=== PATIENT | male | born 1940 | race Caucasian/White ===

== ENCOUNTER → 2016-05-24 | Outpatient (CLI) | payer OTHER ==
[~2016-05-24] MED LIST: ASPEC81 PO; ATOR-22 PO; B-CO1CAP5 PO; FINA5TAB PO; KETO10TA PO; MULT-506 PO; OXYC-57 PO; PRAV20TA PO; TRAM-10 PO
[2016-05-24 11:19] LABS: BLOOD UREA NITROGEN 22 mg/dl (7-18)
== END | disposition home or self-care (01) ==
LOC: C.LABBC 09:07
PROVIDERS: ATTEND Orthopaedic Surgery Sports Medicine
DX: Z01.818 Encounter for other preprocedural examination (principal)

== ENCOUNTER → 2016-08-18 | Outpatient (CLI) | payer OTHER ==
[2016-08-18 16:49] LABS: BASO % 0.5 %; BASO ABS # 0.05 K/uL (0-0.2); COMPLETE YES; EOS % 1.2 %; HEMATOCRIT 42.9 % (42-52); IG% 0.3 %; LYMPH % 36.6 %; LYMPH ABS # 3.54 K/uL (1.2-3.4); MEAN CELL VOLUME 92.7 fL (80-100); MEAN CORPUSCULAR HEMOGLOBIN 31.3 pg (25-34); MEAN CORPUSCULAR HGB CONC 33.8 g/dl (32-36); MEAN PLATELET VOLUME 9.9 fL (7.4-10.4); MONO % 7.9 %; NEUT % 53.5 %; PLATELET COUNT 254 K/uL (130-400); RED BLOOD COUNT 4.63 M/uL (4.7-6.1); WHITE BLOOD COUNT 9.66 K/uL (4.8-10.8)
[2016-08-18 17:00] LABS: POTASSIUM 4.2 mmol/L (3.5-5.1)
== END | disposition home or self-care (01) ==
LOC: C.LABBC 14:58
PROVIDERS: ATTEND Orthopaedic Surgery Sports Medicine
DX: Z01.812 Encounter for preprocedural laboratory examination (principal)

== ENCOUNTER → 2016-09-01 | Day surgery (SDC) | payer OTHER ==
[2016-08-24 13:20] VITALS: Ht 170.2 cm; Wt 79.5 kg
[~2016-09-01] VITALS: Ht 170.2 cm; Wt 79.5 kg
[~2016-09-01] MED LIST changes: +ATROPINE SULFATE 0.1 MG/ML 5ML SYR IV PRN; +BUPIVACAINE/EPINEPHRINE 0.5% MPF 1:200,000 10 ML VIAL ONE; +CEFAZOLIN 2000 MG/60 ML D5W IV SCH; +CEFAZOLIN IV 1,000 MG in DEXTROSE 5% 50ML 50 ML IV SCH; +CEFAZOLIN SOD 1 GM VIAL ONE; +CEFAZOLIN SOD 1000MG/55 ML D5W IV ONE; +DEXAMETHASONE SOD INJ 4 MG/ML VIAL ONE; +EpHEDrine SULFATE 50MG/5ML SYR ONE; +EpHEDrine SULFATE INJ 50 MG/ML AMP IV PRN; +EpINEphrine INJ 1MG/ML AMP 1 MG/ML AMP ONE; +FENTANYL CITRATE INJ 50 MCG/1 ML 2 ML VIAL ONE; +GLYCOPYRROLATE INJ 0.2 MG/ML VIAL ONE; +HYDROmorphone INJ 1 MG/ML SYR IV PRN; +LACTATED RINGER'S 1000ML 1,000 ML IV SCH; +LIDOCAINE HCL 2% 2 ML VIAL (20MG/ML) ONE; +MIDAZOLAM HCL 1 MG/ML 2ML VIAL ONE; +NEOSTIGMINE METHYLSULFATE 5 MG/5 ML SYR ONE; +ONDANSETRON INJ 2 MG/ML 2 ML VIAL IV PRN; +ONDANSETRON INJ 2 MG/ML 2 ML VIAL ONE; +OXYCODONE/ACETAMINOPHEN 5-325 TAB PO PRN; -PRAV20TA PO; +PROPOFOL IV EMULSION 10 MG/ML 20 ML VIAL IV ONE; +ROCURONIUM BROMIDE 10 MG/ML 5 ML VIAL ONE; +ROPIVACAINE 0.5% 5 MG/ML 30 ML VIAL ONE; +SODIUM CHLORIDE 0.9% 1000ML 1,000 ML IV SCH; +SUCCINYLCHOLINE CHLORIDE 20 MG/ML 10 ML VIAL IV ONE; -TRAM-10 PO
--- NOTE | 2016-09-01 06:54 | History & Physical Bridge - [place] ---
H&P Re-Evaluation Bridge Note: I have examined the patient, reviewed the History & Physical and in the interval since the performance of the History & Physical I have noted the following changes of clinical significance: No changes noted
--- NOTE | 2016-09-01 10:51 | Discharge Instructions-SurgCtr ---
Discharge Instructions Date of Service Sep 01, 2016. Visit Reason for Visit: Left Rotator Cuff Tear Discharge Discharge Diagnosis / Problem: left rotator cuff tear Discharge Goals Goal(s): Decrease discomfort, Improve function, Therapeutic intervention Activity Recommendations Activity Limitations: per Instructions/Follow-up section limited use of left arm Anesthesia . Post Anesthesia Instructions: If you have had General Anesthesia or IV Sedation: * Do not drive today. * Resume driving when surgeon permits. * Do not make important decisions or sign legal documents today. * Call surgeon for: 1. Temperature elevations greater than 101 degrees F. 2. Uncontrollable pain. 3. Excessive bleeding. 4. Persistent nausea and vomiting. 5. Medication intolerance (nausea, vomiting or rash). * For nausea and vomiting use only clear liquids such as: tea, soda, bouillon until nausea subsides, then gradually increase diet as tolerated. * If you have any concerns or questions, call your surgeon's office. If physician is unavailable and it is an emergency, call 911 or go to the nearest emergency room. . Instructions / Follow-Up Instructions / Follow-Up MEDICATIONS: * Resume previous medications unless instructed otherwise by your surgeon. * Always take pain medication on a full stomach or with food to avoid upset stomach. * Do not drink alcohol or drive while taking narcotics. * Ibuprofen or Tylenol may be taken if narcotic not needed. No ibuprofen while taking toradol SPECIAL CARE INSTRUCTIONS: __ None _x_ Keep extremity iced x 48 hours; apply ice 20-30 minutes 8-10 times/day. May remove at night. __ Sling __24 hrs/day __ Remove at night _x_ Shoulder Immobilizer _x_ 24 hrs/day __ Remove at night _x_ Dressing __ Maintain until seen in office, may shower with plastic over site _x_ Remove dressings in 24-48 hours and then may shower _x_ Cover incisions with band-aids after showering _x_ Do not remove steri-strips Call physician if chills or temperature rises above 102 degrees or pain unrelieved by prescribed pain medications at . . follow up in 2 weeks Diet Recommendations Home Diet: resume previous diet Procedures Procedures Performed: Left Shoulder Arthroscopy, Open Rotator Cuff Repair, Labral Debridement, Excision Distal Clavicle, Biceps Tenotomy Pending Studies Studies pending at discharge: no Medical Emergencies . Who to Call and When: Medical Emergencies: If at any time you feel your situation is an emergency, please call 911 immediately. . Non-Emergent Contact Non-Emergency issues call your: Surgeon . . "Provider Documentation" section prepared by Naveen Rogers. .
--- NOTE | 2016-09-01 11:32 | Anesthesia Progress Nt - [facility] ---
Anesthesia Post Op Note Date & Time Sep 01, 2016 at 11:32 Vital Signs Pain Intensity: 0 Vital Signs Past 12 Hours Date Time Temp Pulse Resp B/P (MAP) Pulse Ox O2 Delivery O2 Flow Rate FiO2 09/01/16 11:26 36.4 154/75 09/01/16 11:23 83 15 92 09/01/16 11:23 83 15 09/01/16 11:22 153/61 09/01/16 11:18 78 23 98 09/01/16 11:18 80 23 09/01/16 11:17 127/78 09/01/16 11:13 80 17 09/01/16 11:13 85 17 97 09/01/16 11:11 128/56 09/01/16 11:08 86 21 09/01/16 11:08 86 21 98 09/01/16 11:06 120/99 09/01/16 11:03 79 19 98 09/01/16 11:03 78 19 09/01/16 11:01 132/65 09/01/16 10:58 75 18 09/01/16 10:58 75 18 97 09/01/16 10:56 130/68 09/01/16 10:53 74 19 09/01/16 10:53 74 19 95 09/01/16 10:51 126/68 09/01/16 10:48 79 19 09/01/16 10:48 76 19 96 09/01/16 10:47 145/83 09/01/16 10:44 37.2 80 16 97 Diffusion Mask 09/01/16 08:58 0 09/01/16 08:57 0 09/01/16 08:52 56 09/01/16 08:52 56 39 98 09/01/16 08:51 127/65 09/01/16 08:47 54 09/01/16 08:47 55 22 99 09/01/16 08:46 128/60 09/01/16 08:42 55 09/01/16 08:42 56 36 134/56 99 09/01/16 08:37 54 29 99 09/01/16 08:37 54 09/01/16 08:36 138/71 09/01/16 08:32 57 27 99 09/01/16 08:32 57 09/01/16 08:31 132/63 09/01/16 08:27 60 37 99 09/01/16 08:27 60 09/01/16 08:22 57 09/01/16 08:22 57 99 09/01/16 08:21 115/93 09/01/16 08:17 57 14 99 09/01/16 08:17 56 09/01/16 08:16 126/69 09/01/16 08:12 61 09/01/16 08:12 61 25 98 09/01/16 08:11 126/69 09/01/16 08:07 58 09/01/16 08:07 59 22 99 09/01/16 08:06 119/80 09/01/16 08:02 53 09/01/16 08:02 53 17 141/65 99 09/01/16 07:57 53 22 99 09/01/16 07:57 53 09/01/16 07:56 119/56 09/01/16 07:53 117/64 09/01/16 07:52 58 10 99 09/01/16 07:52 56 09/01/16 07:51 126/80 09/01/16 07:47 52 09/01/16 07:47 52 4 96 09/01/16 07:46 135/68 09/01/16 07:42 141/71 09/01/16 06:41 36.8 54 18 154/77 (102) 96 Room Air Notes Mental Status: alert / awake / arousable, participated in evaluation Pt Amnestic to Procedure: Yes Nausea / Vomiting: adequately controlled Pain: adequately controlled Airway Patency, RR, SpO2: stable & adequate BP & HR: stable & adequate Hydration State: stable & adequate Anesthetic Complications: no major complications apparent
[2016-09-01 12:00] VITALS: BP 138/70; PULSE 78; TEMP 36.8; O2SAT 95
--- NOTE | 2016-09-08 13:30 | OPERATIVE REPORT ---
PREOPERATIVE DIAGNOSIS: 1. Left rotator cuff tear. 2. Left shoulder impingement. 3. Left shoulder AC joint arthritis. POSTOPERATIVE DIAGNOSIS:1. Left shoulder rotator cuff tear. 2. Left shoulder impingement. 3. Left shoulder AC joint arthritis. 4. Left shoulder biceps tendonitis with 50% tear of the biceps tendon. 5. Left shoulder degenerative labral tearing. PROCEDURE PERFORMED: 1. Left shoulder exam under anesthesia. 2. Left shoulder diagnostic arthroscopy. 3. Left shoulder arthroscopic labral debridement. 4. Left shoulder arthroscopic biceps tenotomy. 5. Left shoulder open rotator cuff repair with subacromial decompression. 6. Left shoulder open distal clavicle excision. SURGEON: Morgan Alarcon M.D. STEAM BOX HAND: Moises Rogers PA-C. COMPLICATIONS: None. ESTIMATED BLOOD LOSS: 20 cc. ANESTHESIA: General with interscalene block. OPERATIVE INDICATIONS: The patient is a 75-year-old very active gentleman an avid golfer who has had about a year and a half history of a left shoulder pain and discomfort. He has been through extensive conservative treatment without adequate relief. MRI revealed a full thickness cuff tear of the bursal side primarily. The patient failed conservative treatment and elected to proceed with operative intervention. OPERATIVE FINDINGS: Examination of the left shoulder under anesthesia revealed no obvious atrophy. His passive motion was about 170 degrees of forward elevation, rotation and abduction was about 70 degrees external and 70 internal. There was no clinical instability. ARTHROSCOPIC FINDINGS: The arthroscopic findings revealed extensive degenerative tearing of the labrum. He did have about a 50% biceps tendon tear near the biceps groove. This was distal to the insertion to the glenoid. He did have a wear and thinning of the rotator cuff on the undersurface. On the superior surface he had about a 90% bursal-sided cuff tear which is about a 1.5 to 2.0 cm in length. His glenoid was pretty well preserved from the articular cartilage standpoint. He did have some mild degenerative changes of the humeral head. OPERATIVE PROCEDURE: The patient was taken to the operating room, identified and placed on the operating room table in supine position. All contact areas were appropriately padded. IV antibiotics were provided by anesthesia team. An interscalene block had been provided in the holding area. A general anesthetic was implemented. The patient was then placed in the beach chair position using the [facility] shoulder positioner. The left shoulder was examined under anesthesia with the findings are described above. The left shoulder and arm were then prepped and draped in usual sterile fashion. The left arm and shoulder were then prepped and draped in the usual sterile fashion. Routine left shoulder arthroscopy was then performed through the tip of the posterior portal. An anterior portal was established under direct visualization. I did use the shaver to debride the degenerative portions of the labrum. I also examined the biceps. I did release the biceps at its insertion and allowed it to retract. I did not think it was worth doing a tenodesis in this elderly gentleman. Once this was complete the arthroscopic instruments were then removed from the joint. Posterior portal was closed. Attention was then drawn to the open procedure. A longitudal incision was made over the lateral aspect of the acromion and extending towards the anterior portal and incorporating the anterior portal. Sharp dissection was carried through the subcutaneous tissues down to the level of the deltoid fascia and the acromion. The subcutaneous tissues were mobilized circumferentially. A lateral split in the deltoid was then performed about 0.5 cm posterior to the anterior aspect of the acromion and extending over the AC joint of the distal clavicle and then laterally over the deltoid. The deltoid was then subperiosteally dissected off the anterior aspect of the acromion. The AC joint was exposed and then the distal three-quarters of the clavicle were then excised in an oblique fashion. An acromioplasty was then also performed. Attention was then drawn to the rotator cuff. The bursa was excised. Once the bursal tissue was excised you could see the bursal side of the rotator cuff tear. It was about a 90% tear with a few remaining fibers remaining. I elected to resect these fibers in order to perform a complete full thickness repair. The tuberosity was debrided of all soft tissue. I placed two #2 Ticron sutures in a modified Ambrosio Damian stitch over the lateral aspect of the supraspinatus. I then placed two Biomet juggernaut anchors just lateral to the articular surface and fed these through the rotator cuff/supraspinatus just medial to the previously placed sutures. I then placed the lateral rotator cuff sutures through bone tunnels created with a free needle. I then tied these over the lateral aspect of the humerus. The suture anchors were then tied. This provided excellent repair of the rotator cuff. Attention was then drawn toward closing. The wound was irrigated with copious amounts of normal saline. I did inject locally with 30 cc of 0.5% Marcaine with epinephrine. The deltoid was then repaired back to the acromion through drill holes with #2 Ticron suture. The AC joint fascia was repaired with the #2 sutures from the suture anchors. The lateral split in the deltoid was repaired with 0 Vicryl suture in a brwjds-dn-lqugn fashion. The subcutaneous tissue was then closed with 2 Dexon suture in a buried interrupted fashion. The skin was then closed with 3-0 Prolene suture in a subcuticular fashion. A sterile dressing composed of Steri-Strips, Xeroform, 4x4's, and a Tegaderm dressing followed by an abduction immobilizer were applied. The patient was then brought out of general anesthesia and transferred to the recovery room in stable condition. The patient tolerated the procedure well. No complications. All needle and sponge counts were correct at the end of the operation.
== END | disposition home or self-care (01) ==
LOC: X.SURG 06:20
PROVIDERS: ATTEND Orthopaedic Surgery Sports Medicine
DX: M75.102 Unspecified rotator cuff tear or rupture of left shoulder, not specified as traumatic (principal); M19.012 Primary osteoarthritis, left shoulder; M75.22 Bicipital tendinitis, left shoulder; M25.512 Pain in left shoulder; E78.5 Hyperlipidemia, unspecified; G47.33 Obstructive sleep apnea (adult) (pediatric); M19.90 Unspecified osteoarthritis, unspecified site; N40.0 Benign prostatic hyperplasia without lower urinary tract symptoms; F17.200 Nicotine dependence, unspecified, uncomplicated

== ENCOUNTER 2017-04-10 11:01 | Emergency (ER) | payer OTHER ==
[~2017-04-10] VITALS: Ht 170.2 cm; Wt 81.5 kg
[~2017-04-10 11:01] MED LIST changes: -ATROPINE SULFATE 0.1 MG/ML 5ML SYR IV PRN; -BUPIVACAINE/EPINEPHRINE 0.5% MPF 1:200,000 10 ML VIAL ONE; -CEFAZOLIN 2000 MG/60 ML D5W IV SCH; -CEFAZOLIN IV 1,000 MG in DEXTROSE 5% 50ML 50 ML IV SCH; -CEFAZOLIN SOD 1 GM VIAL ONE; -CEFAZOLIN SOD 1000MG/55 ML D5W IV ONE; -DEXAMETHASONE SOD INJ 4 MG/ML VIAL ONE; -EpHEDrine SULFATE 50MG/5ML SYR ONE; -EpHEDrine SULFATE INJ 50 MG/ML AMP IV PRN; -EpINEphrine INJ 1MG/ML AMP 1 MG/ML AMP ONE; -FENTANYL CITRATE INJ 50 MCG/1 ML 2 ML VIAL ONE; -GLYCOPYRROLATE INJ 0.2 MG/ML VIAL ONE; -HYDROmorphone INJ 1 MG/ML SYR IV PRN; -KETO10TA PO; -LACTATED RINGER'S 1000ML 1,000 ML IV SCH; -LIDOCAINE HCL 2% 2 ML VIAL (20MG/ML) ONE; -MIDAZOLAM HCL 1 MG/ML 2ML VIAL ONE; -NEOSTIGMINE METHYLSULFATE 5 MG/5 ML SYR ONE; -ONDANSETRON INJ 2 MG/ML 2 ML VIAL IV PRN; -ONDANSETRON INJ 2 MG/ML 2 ML VIAL ONE; -OXYC-57 PO; -OXYCODONE/ACETAMINOPHEN 5-325 TAB PO PRN; -PROPOFOL IV EMULSION 10 MG/ML 20 ML VIAL IV ONE; -ROCURONIUM BROMIDE 10 MG/ML 5 ML VIAL ONE; -ROPIVACAINE 0.5% 5 MG/ML 30 ML VIAL ONE; -SODIUM CHLORIDE 0.9% 1000ML 1,000 ML IV SCH; -SUCCINYLCHOLINE CHLORIDE 20 MG/ML 10 ML VIAL IV ONE
[2017-04-10 11:06] VITALS: TEMP 36.5; Ht 170.2 cm; Wt 81.5 kg
--- NOTE | 2017-04-10 11:39 | EMERGENCY ROOM VISIT NOTE ---
History First contact with patient: 11:28 Chief Complaint: SWELLING TO EXTREMITY Stated Complaint: RIGHT ELBOW SWOLLEN History of Present Illness The patient is a 76 year old male who presents to the Emergency Room with complaints of left elbow swelling. The patient reports that he first noticed swelling in the left elbow yesterday evening. He was at a wrestling match at that time. He denies any recent injuries to the elbow. He denies any pain, redness or warmth. The patient does have a history of left rotator cuff surgery in August of last year. He denies any history of similar symptoms. He denies any fevers. Review of Systems A complete 10 point review of systems was reviewed with the patient with pertinent positives and negatives as per history of present illness. All else were negative. Past Medical/Surgical History Medical Problems: (1) Kidney stone Surgical Problems: (1) History of back surgery (2) History of carpal tunnel surgery (3) History of neck surgery (4) S/P rotator cuff surgery Family History Heart disease Social History Smoking Status: Current Every Day Smoker Alcohol Use: none Marital Status: Housing Status: lives with significant other Occupation Status: retired Current/Historical Medications Scheduled Aspirin (Aspirin Ec), 81 MG PO DAILY Atorvastatin (Lipitor), 20 MG PO QPM B-Complex W/Biotin & Folic Aci (Super B-Complex), 1 CAP PO DAILY Finasteride (Proscar), 5 MG PO QPM Mirabegron (Myrbetriq Er), 25 MG PO DAILYBB Multivitamin (Multivitamin), 1 TAB PO DAILY Scheduled PRN Chlorpheniramine-Phenylephrine (Samreen-Pfeifer Plus Cold), 1 DOSE PO UD PRN for COLD SYMPTOMS Physical Exam Vital Signs Date Time Temp Pulse Resp B/P (MAP) Pulse Ox O2 Delivery O2 Flow Rate FiO2 04/10/17 12:52 72 18 152/79 97 04/10/17 11:06 36.5 69 20 157/89 96 Room Air Physical Exam VITALS: Vitals are noted on the nurse's note and reviewed by myself. Vital signs stable. GENERAL: This is a 76-year-old male, in no acute distress, nondiaphoretic, well- developed well-nourished. SKIN: No rashes, erythema or warmth. MUSCULOSKELETAL: There is fluctuant over the olecranon process of the left elbow. There is full range of motion of the elbow. There is no tenderness on exam. NEURO: Patient was alert and oriented to person place and time. Medical Decision & Procedures ER Provider Diagnostic Interpretation: L ELBOW MIN 3 VIEWS ROUTINE CLINICAL HISTORY: left elbow swelling pain. Edema. COMPARISON: None. DISCUSSION: No evidence for fracture or dislocation. Evidence for calcific medial and lateral epicondylitis. No significant joint effusion. Posterior soft tissue edema. IMPRESSION: Posterior soft tissue edema. Medial and lateral calcific epicondylitis. No evidence for fracture or dislocation. Medical Decision Differential diagnosis includes inflammatory bursitis, septic bursitis, gout, pseudogout, among others. The patient was evaluated as above. Exam is consistent with an inflammatory bursitis. There is no erythema, warmth or tenderness to suggest infection. Patient has full range of motion of the elbow. He was instructed to take anti- inflammatories at home. He was placed in an Tang wrap. He will follow up with his established orthopedist. He verbalized understanding of my assessment and treatment plan and was discharged home in good condition. Medication Reconcilliation Current Medication List: was personally reviewed by [place] Blood Pressure Screening Patient's blood pressure: Elevated blood pressure Blood pressure disposition: Referred to PCP Impression Primary Impression: Olecranon bursitis of left elbow Departure Information Dispostion Home / Self-Care Condition GOOD Referrals Evans Moreland M.D. (PCP) Morgan Alarcon M.D. Patient Instructions My [facility] Additional Instructions You were treated today for an inflammatory bursitis. Aleve tajk-dth-rduihab twice daily to help reduce swelling. Contact Dr. Alarcon tomorrow to schedule a follow-up appointment. Wear an Tang wrap over the elbow during the day. Return to the emergency department with worsening swelling, redness, warmth, fever, difficulty moving the elbow or any other new/concerning symptoms.
--- NOTE | 2017-04-10 12:00 | DIAGNOSTIC IMAGING REPORT ---
L ELBOW MIN 3 VIEWS ROUTINE CLINICAL HISTORY: left elbow swelling pain. Edema. COMPARISON: None. DISCUSSION: No evidence for fracture or dislocation. Evidence for calcific medial and lateral epicondylitis. No significant joint effusion. Posterior soft tissue edema. IMPRESSION: Posterior soft tissue edema. Medial and lateral calcific epicondylitis. No evidence for fracture or dislocation. The above report was generated using voice recognition software. It may contain grammatical, syntax or spelling errors. Electronically signed by: Evans Lilly M.D. 04/10/2017 11:58 AM Dictated Date/Time: 04/10/2017 11:57 AM
[2017-04-10] MEDS ORDERED: MIRA100T PO (12:38)
[2017-04-10] MEDS ORDERED: ASPI81TA28 PO (12:38)
[2017-04-10] MEDS ORDERED: CHLO1TAB50 PO (12:38)
[2017-04-10 12:52] VITALS: BP 152/79; PULSE 72; O2SAT 97
== END 2017-04-10 12:52 | disposition home or self-care (01) ==
LOC: C.EDB 11:06 → C.EDD 12:52
DX: R22.32 Localized swelling, mass and lump, left upper limb (principal); R03.0 Elevated blood-pressure reading, without diagnosis of hypertension; F17.200 Nicotine dependence, unspecified, uncomplicated; Z98.890 Other specified postprocedural states; Z82.49 Family history of ischemic heart disease and other diseases of the circulatory system